=== PATIENT | male | born 1940 | race Caucasian/White ===

== ENCOUNTER 2022-03-31 15:03 | Outpatient (CLI) | payer MEDICARE, SELFPAY ==
[2022-03-31 14:11] LABS: Albumin* 4.5 g/dL (3.3-5.0); Chloride* 104 mmol/L (96-114)
[2022-03-31 14:12] LABS: Sodium* 141 mmol/L (135-149)
[2022-03-31 14:14] LABS: Aspartate Amino Transferase* 26 U/L (12-35); Bilirubin Total* 0.9 mg/dL (0.1-1.5); Blood Urea Nitrogen* 17 mg/dL (7-30); Carbon Dioxide* 30 mmol/L (20-32); Cholesterol* 208 mg/dL (90-199); Estimated Glomerular Filt Rate 76 ml/min; Glucose* 100 mg/dL (60-115); Total Protein* 6.8 g/dL (6.0-8.3)
[2022-03-31 14:15] LABS: Alanine Aminotransferase* 22 U/L (4-50); Alkaline Phosphatase* 56 U/L (40-150); Calcium* 9.3 mg/dL (8.4-10.6); HDL Cholesterol* 55 mg/dL (>=40); LDL Cholesterol Calculated 113 mg/dL (<100); Potassium* 4.2 mmol/L (3.6-5.1); Triglycerides* 199 mg/dL (40-149)
[2022-03-31 14:44] LABS: PSA Screen* 0.34 ng/mL (0.10-4.00)
== END 2022-03-31 15:04 | disposition home or self-care (01) ==
PROVIDERS: PCP Family Medicine; Visit Provider Family Medicine
DX: Z00.00 Encounter for general adult medical examination without abnormal findings (principal); E78.5 Hyperlipidemia, unspecified; I10 Essential (primary) hypertension; N40.0 Benign prostatic hyperplasia without lower urinary tract symptoms; B37.49 Other urogenital candidiasis
CPT/HCPCS: 80053; 80061; 84153

== ENCOUNTER 2022-09-03 21:10 | Emergency (ER) | payer MEDICARE, SELFPAY ==
[2022-09-03 21:29] VITALS: BP 134/80; PULSE 90; RESP 16; TEMP 36.4; O2SAT 98
--- NOTE | 2022-09-03 21:38 | ED.GENADULT ---
HPI - General Adult General Chief complaint: Insect Bite Stated complaint: Wood ticks Time Seen by Provider: 09/03/22 21:34 History of Present Illness HPI narrative: 5 days ago bit by a wood tick. Initially though it was a skin tag. Bite located, right hamstring . It just keeps itching. looked at the area, told him to get checked out. Surprised there is no clinic open right now. 82-year-old man presenting to the emergency department with concern of tick bite. Five days ago removed it and they decided to watch it. It had felt like a skin tag when he noticed that day. On for unclear amount of time. He said it was a tiny little thing crawling around on the stove with a bit of his skin. He burned up the tick. Unclear what kind. By saying was a tiny thing I take it to mean that he felt that was not particularly engorged but he really had trouble making it out. Otherwise in usual state of health. Today as they have been monitoring this skin spouse noted that it was changing and developing a rash. Related Data Home Medications Medication Instructions Recorded Confirmed fluconazole 150 mg tablet 150 mg PO Q3D PRN 05/06/22 08/21/22 Previous Rx's Medication Instructions Recorded atorvastatin 40 mg tablet 40 mg PO QDAY #90 tabs 04/02/22 lisinopril 10 mg tablet 10 mg PO QDAY #90 tabs 04/02/22 nystatin 100,000 unit/gram topical 1 applic topical TID PRN yeast 04/02/22 cream infection #30 grams tacrolimus 0.1 % topical ointment 1 applic topical BID #60 grams 06/12/22 (Protopic) Allergies Allergy/AdvReac Type Severity Reaction Status Date / Time No Known Drug Allergies Allergy Verified 06/12/22 09:15 Review of Systems Status of ROS: Reports: 6 or more systems reviewed and unremarkable except as noted in History and below [facility] Medical History Subconjunctival hemorrhage of left eye ?H11.32 - Conjunctival hemorrhage, left eye (ICD-10) Surgical History Status post total left knee replacement ?Z96.652 - Presence of left artificial knee joint (ICD-10) History of tonsillectomy and adenoidectomy (01/24/13) ?Z90.89 - Acquired absence of other organs (ICD-10) History of shoulder surgery (01/24/13) ?Z98.890 - Other specified postprocedural states (ICD-10) History of laparoscopic cholecystectomy ?Z90.49 - Acquired absence of other specified parts of digestive tract (ICD-10) Family History Brother Brain cancer COPD (chronic obstructive pulmonary disease) Mother Breast cancer Depression Father Coronary artery disease Social History Narrative: Non-smoker Chewing tobacco use Occasional alcohol consumption Smoking Status: Never smoker Non-prescribed substance use: denies use Little interest or pleasure in doing things: not at all Feeling down, depressed, or hopeless: not at all Exam Narrative: Exam Narrative: Pleasant. NAD. Hearing aids. Of good energy. Breathing easily. Skin is warm and dry. Isolated rash to the posterior right mid thigh. About the size of a quarter. Erythematous ring inside this is some clearing and then centrally erythematous again and point of bite. Essentially a target lesion. Const: Vital Signs, click to edit/add: Vital Signs - 24 hr 09/03/22 21:29 Temperature 97.6 F Pulse Rate [Left P ulse Oximeter] 90 Respiratory Rate 16 Blood Pressure [Ri ght Upper Arm] 134/80 Pulse Oximetry 98 Oxygen Delivery Me thod Room Air Documenting provider has reviewed patient's vital signs: yes Course Vital Signs Vital signs: Initial Vital Signs Temperature 97.6 F 09/03/22 21:29 Temperature Source Temporal Artery Scan 09/03/22 21:29 Pulse Rate 90 09/03/22 21:29 Pulse Rhythm Regular 09/03/22 21:29 Respiratory Rate 16 09/03/22 21:29 Blood Pressure 134/80 09/03/22 21:29 Blood Pressure Mean 98 09/03/22 21:29 Blood Pressure Position Sitting 09/03/22 21:29 Pulse Oximetry 98 09/03/22 21:29 Oxygen Delivery Method Room Air 09/03/22 21:29 Vital Signs Temperature 97.6 F 09/03/22 21:29 Pulse Rate 90 09/03/22 21:29 Respiratory Rate 16 09/03/22 21:29 Blood Pressure 134/80 09/03/22 21:29 Pulse Oximetry 98 09/03/22 21:29 Oxygen Delivery Method Room Air 09/03/22 21:29 Temperature 97.6 F 09/03/22 21:29 Pulse Rate 90 09/03/22 21:29 Respiratory Rate 16 09/03/22 21:29 Blood Pressure 134/80 09/03/22 21:29 Pulse Oximetry 98 09/03/22 21:29 Oxygen Delivery Method Room Air 09/03/22 21:29 Medical Decision Making MDM Narrative Medical decision making narrative: Uncertain duration of attachment probably the most critical issue here. Described as a small tick. Not entirely fitting criteria but advancing target lesion that would appear to be erythema migrans and in this area warrants treatment for Lyme. Labs likely not helpful at this point. See patient discharge plan Medical Records Medical records reviewed: Yes I reviewed the patient's medical records Discharge Plan Discharge Clinical Impression: Erythema migrans (Lyme disease), Tick bite Patient Disposition: Home, Self-Care Condition: Stable Additional Instructions: Doxycycline from [facility]. While taking doxycycline, and for a few days after course, be sure to protect yourself from the sun. Prescriptions: No Action atorvastatin 40 mg tablet 40 mg PO QDAY Qty: 90 3RF lisinopril 10 mg tablet 10 mg PO QDAY Qty: 90 3RF nystatin 100,000 unit/gram cream 1 applic topical TID PRN (Reason: yeast infection) Qty: 30 2RF fluconazole 150 mg tablet 150 mg PO Q3D PRN Rx Instructions: Take 1 dose per week x 4 doses. Repeat as needed. tacrolimus [Protopic] 0.1 % ointment 1 applic topical BID Qty: 60 0RF Follow Up/Referrals: Chicho Capone MD [Primary Care Provider] - Stand Alone Forms: [facility] Info Instructions
== END 2022-09-03 22:29 | disposition home or self-care (01) ==
LOC: ED 22:26
PROVIDERS: Emergency Provider Family Medicine; PCP Family Medicine
DX: A69.20 Lyme disease, unspecified (principal)
CPT/HCPCS: 99283; 99284

== ENCOUNTER 2023-03-19 14:30 | Outpatient (RCR) | payer MEDICARE, SELFPAY ==
--- NOTE | 2022-12-04 14:42 | PT.OPE ---
PT [place] Outpatient Eval PT [facility] Outpatient Eval Start: 12/04/22 14:20 Freq: Status: Active Protocol: Document 12/04/22 14:20 BONNIE (Rec: 12/04/22 14:22 BONNIE [id number]) E-signed By Harry Mckeon DPT, MS Physical Therapy Outpatient Evaluation Insurance Information Recert Due Date 03/04/23 Insurance Name Medicare B,Other; See Comments Insurance Information/Comments [employer] Medical Diagnosis Radiculopathy, lumbar region Treating Diagnosis Chronic B LS pain with radicular sxs, decreased B LS and LE flexibility, gait dysfunction, and B LE and core weakness. Subjective Subjective Patient is an 82-year-old male who presents to PT with c/o chronic B LS pain with B radicular sxs of insidious origin ~7-10 months ago. 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 Sxs tend to come and go with extended time on his feet and reaching overhead being provoking. Works out 3x per week at [facility] with treadmill requiring him to push upwards on the bars to relieve pressure. Motivated to decrease sxs since he wants to remain active around his condo and to avoid limping. PMH includes HTN. AGGR factors : extended walking, carrying objects, standing, reaching upwards. ALLEV factors: rest, Aleve, sitting. Pain Comments 0-7/10 Current Work Status Retired Preferred Name Rich Precautions Therapy Limitations/Systems Review Not Limited Objective Functional Test Performed & Score Modified OSWESTRY: 32% Assessment Assessment/Impression Pt displays signs and symptoms consistent with dx of LS pain with B radiculopathy. LS flex directional preference of movement consistent with stenosis. + B slump testing. B (L>R) hip and LS tightness also appears to be contributing to sxs. Weakness found in B glute, quad and core musculature also contributing. Excellent response to trial of recumbent bike, stretching and strengthening exercises with decreased B LS and LE tightness and pain. Pt will use recumbent bike at the [facility] . He will benefit from continued skilled therapy to address these limitations. Primary Functional Limitations Extended walking, carrying objects, standing, reaching upwards Plan of Care Rehabilitation Potential Excellent Physical Therapy Goals Short-term goals to be completed in 4 weeks: 1. Pt will display improved B LE muscular strength as evidenced by performing >10 SLR of good quality to improve quality of gait. 2. Pt will report improved tolerance to standing >10 min with no elevation in LS radicular sxs to improve sandra to daily activities. Long-term goals to be completed in 10 weeks: 1. Pt will be independent and compliant with HEP 2. Pt will display improved B hip flex, ABD and ext, and abdominal strength of >4/5 to improve tolerance to work activities. 3. Pt will be able to walk for >15 min with LS pain <2/10 to improve cardiovascular health . 4. Pt will report >75% improvement in modified OSWESTRY questionnaire to significantly improve tolerance to functional activities. Coordination/Communication With Referral Source Treatment Plan/Direct Interventions Joint Mobilization,Manual Therapy,Therapeutic Exercises Frequency/Duration 1x per week for at least 6-10 visits, decreasing frequency as able. Patient Will Be Discharged From Therapy Completion of LTG(s),Skills Plateau,Independent w/HEP, Independently Progressing Evaluation Billing Untimed Code Treatment Minutes 26 Complexity Moderate Certification Information Initial Certification Date 12/04/22 Ending Certification Date 03/04/23 Provider Signature Shows Agreement With POC & Medical Necessity Physician Signature & Date Requested Please Sign/Date Here Physician Comment/Change : Physician NPI Number #
--- NOTE | 2023-03-20 14:00 | PT.OPDN ---
PT [place] Outpatient Daily Note PT [facility] Outpatient Daily Note Start: 12/04/22 14:20 Freq: Status: Active Protocol: Document 03/19/23 15:24 BONNIE (Rec: 03/19/23 15:28 BONNIE [id number]) E-signed By Harry Mckeon DPT, MS PT OP Daily Progress Note Visit Information Note Type Recert/Progress Note Visit Number 4 Insurance Authorized Visits - Physician Authorized Visits Eval and treat Insurance Information Recert Due Date 03/04/23 Insurance Name Medicare B,Other; See Comments Insurance Information/Comments [employer] Medical Diagnosis Radiculopathy, lumbar region Treating Diagnosis Chronic B LS pain with radicular sxs, decreased B LS and LE flexibility, gait dysfunction, and B LE and core weakness. Subjective Subjective Pt returns to PT due to continued fluctuating levels of B LS pain and radicular sxs . Confused since he can have mornings where he feels great but has high levels of pain after doing work around his house and workshop for a few hours, but sxs improve overnight. Wants to know if there are other exercises/ strategies he can incorporate to decrease sxs. Leg press remains provoking and stopped several weeks ago. Pain Comments 0-5/10 Preferred Name Rich Objective Other/Pertinent Objective LS AROM Flex: WFL with stretch Ext: 25% limited with increased radicular sxs SB: B WFL Rot: B WFL with pain Strength Hip flex: B 5/5 Knee ext: B 5/5 Knee flex: B 5/5 DF: B 5/5 PF (B heel raises): 18 until fatigue Hip ABD: right 4-/5, left 4/5 Hip ext: B 4/5 Abdominal: 4-/5 Heel and toe walking each normal Posture: good I sitting and standing posture with increased LS lordosis Palpation: tenderness B LS tha Gait: increased B stride width with normal velocity Balance: Single leg stance: B 10 sec Swelling: none Sensation: light touch intact bilat LE Other: Hamstring 90-90: R lacking 20 deg, L lacking 25 deg Slump: B - Lower extremity neural tension (sciatic): B + 25 deg hip flex Ganesh?s: B - PA: T10- 5 hypomobile (G2) UPA T10-L5 hypomobile B (G2) Functional Test Performed & Score Modified OSWESTRY: 28% Patient Instructed in Risks/Benefits Yes Therapeutic Exercise Therapeutic Exercise Minutes (minutes) 45 Therapeutic Exercise: To Restore LTR Functional Status Clamshells progressed RTB above knees 12 x 3 Pelvic tilts Supine marching progressed B LE off bed 6 x 3 with slower movement SKTC stretching Seated piriformis stretching Seated hamstring stretch Standing hip ABD and ext at counter with leaning onto counter progressed RTB above knees 8 x 3 B NuStep L4 resistance x 7 min for ROM and endurance with fatigue. Reviewed proper setup at the [facility]. Sit<>stands with 8# kettle fowler 6 x 3 Progressed to knee ext machine 20# 10 x 3 Progressed to HS curl machine 20# 10 x 3 Progressed to exercise ball circles, pelvic tilts and marching Cat cow stretch into stretch and not pain Supine alt marching with TrA contraction Seated prayer stretch with exercise ball Standing gentle LS ext stretch B piriformis stretch and LE long axis distraction with belt. Treatment Minutes Timed Code Treatment Minutes 45 Total Treatment Time 45 Billing Units Therapeutic Exercise Units 3 Assessment/Impression Assessment/Impression Pt displays continued B LS pain with B radicular sxs with WBing positions with LS flex directional preference of movement. B (L>R) hip and LS tightness, and B LE and core weakness continues to contribute to sxs. Pt has also been perfroming jumping jacks in the pool and prone press up exercises that are contributing to his sxs and was instructed to avoid these activities. Good response to trial of the NuStep, stretching and progression of LE strengthening exercises with decreased LS pain following. Emphasized importance of rest breaks prn, avoiding pushing activities into sxs. Pt will benefit from continued skilled PT services , progressing as able. Plan of Care Physical Therapy Goals Short-term goals to be completed in 4 weeks: 1. Pt will display improved B LE muscular strength as evidenced by performing >10 SLR of good quality to improve quality of gait. MET 2. Pt will report improved tolerance to standing >10 min with no elevation in LS radicular sxs to improve sandra to daily activities. Progressing Long-term goals to be completed in 28 weeks: 1. Pt will be independent and compliant with HEP. Progressing 2. Pt will display improved B hip flex, ABD and ext, and abdominal strength of >4/5 to improve tolerance to work activities. Progressing 3. Pt will be able to walk for >15 min with LS pain <2/10 to improve cardiovascular health . Progressing 4. Pt will report >75% improvement in modified OSWESTRY questionnaire to significantly improve tolerance to functional activities. Progressing Daily Plan of Care Continue per POC Daily Plan of Care Comments Progress B LE and LS flexibility, and B LE and core strength, as able. Recertification Information Initial Certification Date 12/04/22 Recertification Start Date 03/04/23 Recertification Due Date 06/02/23 Reasons to Continue Skilled Therapy See assessment Rehabilitation Potential Good due to chronic nature of sxs and degenerative LS changes Continued Plan of Care and Interventions 1 visit every 1-2 week for 4-6 additional visits with interventions including therapeutic exercise, manual therapy and mechanical LS traction Provider Signature Shows Agreement With POC & Medical Necessity Physician Comment/Change Comment or Changes Physician NPI Number #
== END 2023-07-17 23:59 | disposition home or self-care (01) ==
PROVIDERS: PCP Family Medicine; Visit Provider Family Medicine
DX: M54.16 Radiculopathy, lumbar region (principal); R26.9 Unspecified abnormalities of gait and mobility; M62.81 Muscle weakness (generalized); R29.898 Other symptoms and signs involving the musculoskeletal system; Z51.89 Encounter for other specified aftercare
CPT/HCPCS: 97110; 97162

== ENCOUNTER 2023-04-07 08:02 | Outpatient (CLI) | payer MEDICARE, SELFPAY ==
--- OUTSIDE RECORDS SUMMARY | 2023-04-10 18:18 | XMS_ITS | Referral Summary ---
Author Name Unknown Organization [facility] Address [address] [place] [id number] Care Team Providers Care Bag Maker Name Role Phone [facility] Primary Care Provider Immunizations Name Administration Dates Next Due TDAP Vaccine (Adacel) 11/05/2018 Social History Tobacco Use Types Packs/Day Years Used Date Smoking Tobacco: Never Assessed Sex and Gender Information Value Date Recorded Sex Assigned at Not on file Gender Identity Not on file Sexual Orientation Not on file Last Filed Vital Signs Vital Sign Reading Time Taken Comments Blood Pressure 146/81 11/05/2018 7:00 PM CDT Pulse 64 11/05/2018 7:00 PM CDT Temperature 37.6 ??C (99.6 ??F) 11/05/2018 3:08 PM CD T Respiratory Rate 16 11/05/2018 3:08 PM CDT Oxygen Saturation 99% 11/05/2018 6:30 PM CDT Inhaled Oxygen Concentration - - Weight - - Height - - Body Mass Index - - Plan of Treatment Not on file Care Teams Bag Maker Relationship Specialty Start Date End Date [facility] [address] [place] [address] PCP - General 11/05/18
--- OUTSIDE RECORDS SUMMARY | 2023-04-10 18:18 | XMS_ITS | Clinical Summary ---
Author Name Unknown Organization [facility] Address [address] [place] [id number] Care Team Providers Care Traffic Signal Technician Name Role Phone [facility] Primary Care Provider Immunizations Name Administration Dates [...] of Treatment Not on file Care Teams Traffic Signal Technician Relationship Specialty Start Date End Date [facility] [address] [place] [address] PCP - General 11/05/18
--- OUTSIDE RECORDS SUMMARY | 2023-04-10 18:18 | XMS_ITS | Clinical Summary ---
Author Name Unknown Organization [facility] Address [place], [place] [address] Care Team Providers Care Wholesale Account Executive Name Role Phone Chicho Capone MD Primary Care Provider [phone] Allergies No known active allergies Medications Medication Sig Dispensed Refills Start Date End Date Status LIPITOR 40 MG TAB take 1 tablet (40mg) by oral route once daily 0 01/27/2006 Active lisinopril (PRINIVIL; ZESTRIL) 5 mg tablet Take 1 tablet by mouth once daily. 0 04/25/2014 Active tamsulosin (FLOMAX) 0.4 mg capsule Take 0.8 mg by mouth. 2 08/05/2017 Active Active Problems Problem Noted Date Diagnosed Date Hyperopia of both eyes with astigmatism and pres byopia 10/02/2017 Nuclear senile cataract of both eyes 10/02/2017 R lower lobe calcified granuloma 03/12/2011 PUD (peptic ulcer disease) 03/08/2011 Other and unspecified hyperlipidemia 03/08/2011 Resolved Problems Problem Noted Date Diagnosed Date Resolved Date Ascending cholangitis 03/08/20112011 Hypotension 03/08/2011 04/23/2011 Immunizations Name Administration Dates Next Due COVID-19 vaccine (Acorns 30mcg/0.3mL) P DARINEL Naylor 05/16/2020,04/25/2020 Influenza, IIV3 (Age >=3 years) 12/21/2010 Pneumococcal Poly,23-Valent (Pneumovax) 12/22/19 10 Family History Medical History Relation Name Comments No Known Problems Father No Known Problems Mother Heart Disease Other Relation Name Status Comments Father Mother Other Social History Tobacco Use Types Packs/Day Years Used Date Smoking Tobacco: Former Smokeless Tobacco: Former Tobacco Cessation:Counseling Given: Yes Alcohol Use Standard Drinks/Week Comments Yes 2.5 (1 standard drin k = 0.6 oz pure alcohol) no etoh intack in last 2 weeks. Social Connections Answer Date Recorded Frequency of Communication with Friends and Fami ly Not on file 03/21/2021 Financial Resource Strain Answer Date R ecorded Difficulty of Paying Living Expenses Not on file 03/21/2021 Difficulty of Paying Living Expenses Not on file 03/21/2021 Sex and Gender Information Value Date Recorded Sex Assigned at Not on file Gender Identity Not on file Sexual Orientation Not on file Obstetrics History Last Filed Vital Signs Vital Sign Reading Time Taken Comments Blood Pressure 135/80 01/10/2019 1:18 PM CDT Pulse 69 01/10/2019 1:18 PM CDT Temperature 36.8 ??C (98.2 ??F) 02/13/2016 5:29 PM CS T Respiratory Rate 16 02/13/2016 5:29 PM DIVERSITY INTERN Oxygen Saturation 97% 02/13/2016 5:29 PM [employer]N Inhaled Oxygen Concentration - - Weight 91.2 kg (201 lb) 04/23/2011 9:56 AM DIVERSITY INTERN Height 172.7 cm (5' 8) 04/14/2011 10:00 AM DIVERSITY INTERN Body Mass Index 30.56 04/14/2011 10:00 AM [employer] INTERN Plan of Treatment Health Maintenance Due Date Last Done Comments Tdap 1953 Depression screening for age 12+ 1954 BMI (ht and wt on same day) for age 18+ 02/10/1960 Tetanus booster 1962 Zoster (shingles) series for age 50+ (1 of 2) 02/10/1992 Medicare Wellness for age 65+ 2007 Pneumococcal series for age 65+ (2 of 2 - PCV) 12/21/2010 12/21/2009 COVID-19 vaccine series (2022- season) 2022 08/12/2022, 12/17/2021, 07/19/2021, Additional history exists Influenza for age 65+ 11/21/2022 12/21/2010 Advance Directives Latest Code Status on File Code Status Date Activated Date Inactivated Comments Full Code 04/14/2011 7:09 AM 04/15/2011 5:21 PM Code Status History Code Status Date Activated Date Inactivated Comments Full Code 03/08/2011 12:49 PM 03/12/2011 4:38 PM Care Teams Wholesale Account Executive Relationship Specialty Start Date End Date Chicho Capone MD PCP - General Family Practice 02/11/16
== END 2023-04-07 08:03 | disposition home or self-care (01) ==
PROVIDERS: PCP Family Medicine; Referring Provider Family Medicine; Visit Provider Family Medicine
DX: Z00.00 Encounter for general adult medical examination without abnormal findings (principal); E78.5 Hyperlipidemia, unspecified; I10 Essential (primary) hypertension; Z12.5 Encounter for screening for malignant neoplasm of prostate
CPT/HCPCS: 80053; 80061; G0103

== ENCOUNTER 2024-04-18 08:11 | Outpatient (CLI) | payer MEDICARE, SELFPAY | END 2024-04-18 08:12 | disposition home or self-care (01) | LOC: NFLDREF 04-25 01:10 | PROVIDERS: PCP Family Medicine; Referring Provider Family Medicine; Visit Provider Family Medicine | DX: I10 Essential (primary) hypertension (principal); E78.5 Hyperlipidemia, unspecified; Z12.5 Encounter for screening for malignant neoplasm of prostate | CPT/HCPCS: 80053; 80061; G0103 ==